=== PATIENT | male | born 1965 | race Caucasian/White ===

== ENCOUNTER 2016-08-02 03:12 | Inpatient (IN) | payer OTHER ==
[~2016-08-02] VITALS: Ht 182.9 cm; Wt 145.2 kg
[~2016-08-02 03:12] MED LIST: AMLODIPINE BESY10 M1 PO; LISINOPRIL20 M1 PO
--- NOTE | 2016-08-02 11:08 | Admission Core Measures ---
Admission Meds I reviewed the following Meds: Current Medications Sig/Heidy Start time Last Medication Dose Stop Time Status Admin Acetaminophen 975 MG ONCE 08/02 NR (Tylenol) 08/02 2358 Cefazolin Sodium 3,000 MG ONCE 08/02 NR (Kefzol-Ancef Inj) 08/02 2358 Oxycodone HCl 10 MG ONCE 08/02 0000 NR (Roxicodone) 08/02 2358 Acute Coronary Syndrome Inclusion Criteria ACS Diagnosis No Inpatient Core Measures LDL Reminder: If No, please order W/I first 24hr of stay Congestive Heart Failure Inclusion Criteria CHF Diagnosis No Cerebrovascular accident Inclusion Criteria CVA/TIA Diagnosis No Inpatient Core Measures Bedside Swallow Eval Reminder: If BSE failed, place ST order Antithrombotic Reminder: Order Antithrombotic Medication by end of day 2 Antithrombotic Reminder: Document Reason Antithrombotic Not ordered by end of day 2 AFIB/Flutter Reminder: If Present, add to problem list AFIB/Flutter Reminder: Order Anticoag Medication for pts with AFIB/Flutter Atherosclerosis Reminder: If Present, add to problem list LDL Reminder: If No, please order W/I first 24hr of stay PT Order Reminder: If No, please order Venous thromboembolism Inpatient Core Measures VTE Risk Factors: Age > 40, Previous VTE, Surgery No [facility] VTE prophylaxis d/t No contraindications No VTE Pharm Prophylaxis d/t No contraindications Inclusion Criteria - Per Current guidelines, there needs to be overlap - treatment for the first 5 days of Warfarin therapy. - Parenteral Anticoagulation (IV or SC) needs to be - given along with Warfarin therapy. VTE Diagnosis No VTE Type NONE VTE Confirmed by (Test) NONE Problem List As ranked by this Provider includes Assessment & Plan 1. Status post total hip replacement, right HOME MEDS Home Med List Amlodipine Besylate 10 MG TABLET 1 TAB PO DAILY HTN (Reported) Lisinopril 20 MG TABLET 1 TAB PO DAILY HTN (Reported)
[2016-08-02] MEDS ORDERED: MS CONTIN30 M1 PO (11:21)
[2016-08-02] MEDS ORDERED: COLACE100 M1 PO (11:21)
[2016-08-02] MEDS ORDERED: ELIQUIS2.5 M1 PO (11:21)
[2016-08-02] MEDS ORDERED: DILAUDID4 M1 PO (11:21)
[2016-08-02] MEDS ORDERED: MIRALAX17 G1 PO (11:21)
--- NOTE | 2016-08-02 11:24 | Patient Discharge Instructions ---
Discharge Instructions General Discharge Information You were seen/treated for: Right hip degenerative joint disease You had these procedures: Right total hip arthroplasty Watch for these problems: Significantly increased pain or difficulty ambulating Temperature over 101 Increased redness, swelling, or drainage from incision No bath, but you may shower: Yes Other wound care: Daily dry dressing change Special Instructions: See printed information booklet Diet Continue normal diet: Yes Activity Activity Self Limited: Yes Other activity limits: Ambulate using a walker as directed by physical therapy No driving or operating heavy machinery while taking pain medications and until okayed by your surgeon Acute Coronary Syndrome Inclusion Criteria At DC or during hospital stay patient has or had the following: ACS DIAGNOSIS No Discharge Core Measures Meds if any: Prescribed or Continued at Discharge Meds if any: NOT Prescribed or Continued at Discharge Congestive Heart Failure Inclusion Criteria At DC or during hospital stay patient has or had the following: CHF DIAGNOSIS No Discharge Core Measures Meds if any: Prescribed or Continued at Discharge Meds if any: NOT Prescribed or Continued at Discharge Cerebrovascular accident Inclusion Criteria At DC or during hospital stay patient has or had the following: CVA/TIA Diagnosis No Discharge Core Measures Meds if any: Prescribed or Continued at Discharge Meds if any: NOT Prescribed or Continued at Discharge Venous thromboembolism Inclusion Criteria VTE Diagnosis No VTE Type NONE VTE Confirmed by (Test) NONE Discharge Core Measures - Per Current guidelines, there needs to be overlap - treatment for the first 5 days of Warfarin therapy. - If discharged on Warfarin prior to 5 days of - overlap therapy, the patient will need to be - assessed for post discharge needs including - *Post discharge parental anticoagulation - *Warfarin and/or parental anticoagulation education - *Follow up date to check INR post discharge At least 5 days overlap therapy as Inpatient No Meds if any: Prescribed or Continued at Discharge Note: Overlap Therapy is Warfarin and Anticoagulant Meds if any: NOT Prescribed or Continued at Discharge
--- NOTE | 2016-08-02 11:25 | Surg Short-stay <48hrs Dis Sum ---
Visit Information Visit Dates Admission Date: 08/02/16 Discharge Date: 08/03/16 Surgical Short Stay DC Summary Admission Diagnosis: Right hip degenerative joint disease Final Diagnosis: Same Procedure(s): Right total hip arthroplasty Summary/Significant Findings: The patient was noted on 08/02/2016. He was brought to the operating theater later that day and underwent a right total hip arthroplasty. Stop the patient progressed as expected and his pain is under adequate control. He ambulated safely with physical therapy and voided postoperatively. He tolerated a regular diet and was discharged with an uneventful hospital course. Condition at Discharge: Stable Discharge Disposition: home health services Discharge instructions provided to patient/family: Yes Post discharge follow-up plan: Call the office to be seen in 6 weeks or earlier if needed
--- NOTE | 2016-08-02 15:02 | RADIOLOGY REPORT ---
EXAMINATION: XR HIP, RIGHT CLINICAL INFORMATION: Status post right hip replacement. COMPARISON: None TECHNIQUE: 2 views of the right hip including AP and crosstable lateral. FINDINGS: The lateral view is limited in the evaluation of the proximal portion of the hip due to overlying soft tissue density partially obscuring evaluation particularly of the acetabular component. A right total hip arthroplasty is noted. There is no periprosthetic fracture or suspicious area of lucency noted. A drain is identified with the tip overlying the intertrochanteric region. A small amount of air is noted in the soft tissues consistent with the surgery. IMPRESSION: Right total hip arthroplasty without complication by x-ray. Lateral view slightly limited as noted above
[2016-08-02 16:00] VITALS: BP 122/68
--- NOTE | 2016-08-02 16:00 | NUR ---
NURSING NOTE: PT ARRIVED TO FLOOR VIA STRETCHER WITH DISTRIBUTION FROM PACU, S/P R HIP REPLACEMENT, PT AWAKE, A/OX3, ROOM AIR, VITALS OBTAINED AND STABLE. IVF PER MD ORDER, PT DENIES PAIN, C/O MINIMAL NUMBNESS TO BLE. PT SETTLED INTO BED, P.T. TO MOBILIZE PT. PT REFUSING BED ALARM, ALPS IN PLACE, DTV BY 1900PM; URINAL AT BEDSIDE HEMOVAC TO R HIP INTACT. PT ORIENTED TO CALL BOONE SYSTEM, CALL BOONE IN REACH, INFO PACKET GIVEN, HOURLY ROUNDING EXPLAINED. ICE TO R HIP. HIP KIT/TEDS ORDERED BY ; AWAITING DELIVERY TO FLOOR. CONT TO MONITOR.
--- NOTE | 2016-08-02 16:45 | NUR ---
NURSING NOTE: REPORT GIVEN TO RYAN ROSADO, PT SITTING IN CHAIR, DENIES COMPLAINTS, CALL BOONE IN REACH, CONT TO MONITOR.
--- NOTE | 2016-08-02 17:26 | Operative Report ---
Operative/Inv Procedure Report Surgery Date: 08/02/16 Name of Procedure: Right total hip replacement Pre-Operative Diagnosis: Primary right hip DJD Post-Operative Diagnosis: Same Estimated Blood Loss: 350 Surgeon/Program Engineer: JEET HERNANDEZ,TERRI Trotter Anesthesia: block Operative/Procedure Note Note: Description of Procedure: The patient was taken to the operating room and positively identified. After induction of spinal anesthesia and administration of appropriate pre-operative antibiotics, the patient was positioned supine on the operating room table and all bony prominences were well padded. After performing a surgical timeout, the right lower extremity was prepped and draped in the usual sterile fashion. A direct anterior approach was made to the right hip. The incision was carried sharply through superficial soft tissues to the level of the fascia. Meticulous hemostasis was maintained with Bovie electocautery. The fascia over the tensor fascia kimberlee muscle was opened sharply and the interval between the TFL and the sartorius was entered bluntly taking care to stay lateral to the lateral femoral cutaneous nerve. Retractors were placed around the femoral neck and the pericapsular fat was identified. The ascending branches of the lateral femoral circumflex vessels were identified and carefully coagulated. The pericapsular fat and anterior capsule were then resected. A napkin ring osteotomy was performed and the femoral head was removed without difficulty. Attention was then turned to the acetabulum. After appropriate placement of retractors, the acetabulum was exposed. Soft tissue was cleaned from the acetabular margin and notch. Overhanging osteophytes were removed and the teardrop was exposed. The acetabulum was then sequentially reamed to accept a 62 mm Giorgi Tritanium hemispherical cluster hole shell. This was impacted into place in the appropriate position and 2 screws were used for supplemental fixation. It was then fitted with a 36 mm Trident X3 zero degree polyethylene insert. Attention was then turned to the femur. After performing the appropriate ligament releases, the proximal femur was exposed. It was then sequentially broached to accept a size 6 [place] oh stem. This was trialed for leg length and stability. The trial component was removed and the final component was impacted into place. The trunnion was carefully cleaned and fit with a 36 mm, and - 2.5 Biolox delta ceramic femoral head. The hip was reduced and put through a full range of motion and found to be stable. The articular space was then irrigated with sterile saline. The periarticular soft tissues were infilitrated with Marcaine. The fascial layer was closed with interrupted #1 vicryl suture and the skin was re-approximated with interrupted 2 -0 vicryl. The skin was closed with a running 3-0 V-Lock suture. Steri-strips and a sterile dressing were applied. The patient was awakened and taken to the recovery room in satisfactory condition.
--- NOTE | 2016-08-02 17:34 | PN- Orthopedic ---
Subjective Subjective: POSTOP CHECK +PAIN IN nonsurgical hip (left), some discomfort in surgical hip (right), no n/v /cp/sob, no paresthesias Objective Vital Signs and I&Os Vital Signs Date Time Temp Pulse Resp B/P B/P Pulse O2 O2 Flow FiO2 Mean Ox Delivery Rate 08/02 1600 97.6 80 18 122/68 97 Room Air Physical Exam: GEN: NAD CARD: [id number] RRR PULM: CTAB ABD: obese soft nt EXT: calves soft nt bl, R hip dressing CDI, hemovac in place-serosang drainage, ttp at incision, +pedal pulses bl Assessment/Plan Assessment/Plan POD#0 sp R SUSAN, stable with postop pain. PLAN: prnpain meds OOB, PT eliquis- DVT ppx abx x23h home meds i&os, drain care Core Measures/Miscellaneous Venous Thromboembolism VTE Risk Factors: Age > 40, Obesity, Surgery VTE Contraindications: No Contraindications VTE Diagnosis: No VTE Type: NONE VTE Confirmed by (Test): NONE Beta Kimberley Is Beta Kimberley a Home Med? No Antibiotics Is Patient on Antibiotics? Yes If Yes: prophylaxis
[2016-08-02 18:00] VITALS: BP 120/60
[2016-08-02 22:44] VITALS: BP 120/66
[2016-08-03 01:22] VITALS: BP 110/78
[2016-08-03 05:13] VITALS: BP 124/76
--- NOTE | 2016-08-03 07:26 | PN- Orthopedic ---
Subjective Subjective: The patient was seen this morning postoperatively day #1. He reports that has significant pain in the middle the night but eventually the pain medicines caught up and is comfortable at the current time. He has not with current time is eager to work with physical therapy. Objective Vital Signs and I&Os Vital Signs Date Time Temp Pulse Resp B/P B/P Pulse O2 O2 Flow FiO2 Mean Ox Delivery Rate 08/03 0513 98.2 67 18 124/76 93 Room Air 08/03 0122 98.7 67 20 110/78 93 Room Air 08/02 2244 98.3 74 22 120/66 98 Room Air 08/02 1937 Room Air 08/02 1800 65 20 120/60 96 Room Air 08/02 1600 97.6 80 18 122/68 97 Room Air Intake & Output 08/03 0800 08/03 0000 08/02 1600 08/02 0800 08/02 0000 08/01 1600 Intake Total 1125 Output Total 1830 Balance -705 Intake, IV 525 Intake, Oral 600 Output, 230 Drainage Output, Urine 1600 Patient 320 lb Weight Weight Reported by Patient Measurement Method Physical Exam: Gen.: Alert and in no obvious distress Skin: Warm and dry Extremities: Bilateral reduction was are warm without calf tenderness or significant edema. Gross motor and sensory are intact. Right hip surgical dressing is clean, dry, and intact. His Hemovac holding suction with dark sanguinous drainage in the collection chamber. Assessment/Plan Assessment/Plan Assessment: 50-year-old male status post right total hip arthroplasty postoperative day 1. The patient is progressing as pain is under adequate control. Plan: Out of bed with physical therapy Continue current pain regiment Follow-up morning laboratory studies GI and DVT prophylaxis eliquis twice a day Hep-Lock IV fluids DC Hemovac Discharge home later today pending physical therapy's clearance Core Measures/Miscellaneous Venous Thromboembolism VTE Risk Factors: Age > 40, Obesity, Surgery VTE Contraindications: No Contraindications VTE Diagnosis: No VTE Type: NONE VTE Confirmed by (Test): NONE Beta Kimberley Is Beta Kimberley a Home Med? No Antibiotics Is Patient on Antibiotics? No
[2016-08-03 08:11] LABS: ABSOLUTE BASOPHIL COUNT 0 /CUMM (0.0-0.2); ABSOLUTE EOSINOPHIL COUNT 0 /CUMM (0.0-0.7); ABSOLUTE GRANULOCYTE CT 7.3 /CUMM (1.4-6.5); ABSOLUTE LYMPH COUNT 1.2 /CUMM (1.2-3.4); ABSOLUTE MONOCYTE COUNT 1.1 /CUMM (0.10-0.60); BASOPHIL % 0.1 % (0.0-2.0); EOSINOPHIL % 0.1 % (0-5); GRANULOCYTE % 76.2 % (42.2-75.2); HEMATOCRIT 36.8 % (42-52); MEAN CORPUSCULAR HGB 30.4 PG (27.0-31.0); MEAN CORPUSCULAR HGB CONC 33.9 G/DL (33.0-37.0); MEAN CORPUSCULAR VOLUME 89.6 FL (80.0-94.0); MEAN PLATELET VOLUME 7.7 FL (7.4-10.4); PLATELET COUNT 227 /CUMM (130-400); RBC DISTRIBUTION WIDTH 14.3 % (11.5-14.5); RED BLOOD CELL CT 4.11 /CUMM (4.70-6.10); WHITE BLOOD CELL COUNT 9.6 /CUMM (4.8-10.8)
[2016-08-03 09:19] VITALS: BP 124/76
--- NOTE | 2016-08-03 10:20 | NUR ---
LATE ENTRY: PT C/O R HAND PAIN RATING IT 7/10 ON TO 0/10 PAIN SCALE RATING.PT REPORTS THE PAIN EXTENDS DOWN TO HIS ELBOW. PT ALSO C/O NUMBNESS TO THAT HAND ESPECIALLY TO HIS "FIRST 3 FINGERS." PT HAS AN IV SITE TO THAT R HAND BUT SITE APPEARS WNL. SURGICAL PA MICHAEL CALDERA NOTIFIED. PER PA, TO PLACE WARM COMPRESS AND TO MEDICATE FOR PAIN. PT UPDATED. WILL CONT TO MONITOR.
--- NOTE | 2016-08-03 14:00 | NUR ---
PT REPORTS PAIN AND NUMBNESS TO R HAND IS MUCH BETTER. WILL CONT TO MONITOR.
== END 2016-08-03 15:39 | disposition home health service (06) | DRG 470 ==
LOC: SDA 03:12 → EDBD 07:00 → SDA 07:00 → ENRESERV 15:32 → 2NB 16:00 → ENPENDDIS 08-03 07:31 → 2NB 08-03 15:39
PROVIDERS: Physician Assistant Surgical; ADMIT Orthopaedic Surgery
PROC: 0SR904A Replacement of Right Hip Joint with Ceramic on Polyethylene Synthetic Substitute, Uncemented, Open Approach (ICD-10-PCS; principal; 2016-08-02)
DX: M16.11 Unilateral primary osteoarthritis, right hip (principal); Z68.41 Body mass index [BMI] 40.0-44.9, adult; I10 Essential (primary) hypertension; E66.9 Obesity, unspecified; Z85.72 Personal history of non-Hodgkin lymphomas; G47.33 Obstructive sleep apnea (adult) (pediatric)
CPT/HCPCS: 2NBSP; 73502-RT; 82436; 88304; 97110-GO; 97116-GO; 97161-GP; 97530-GO; J0690; J0735; J1100; J1200; J1885; J2405; J7042